=== PATIENT | female | born 1990 | race Caucasian/White ===

== ENCOUNTER 2018-04-28 19:51 | Emergency (ER) | payer OTHER ==
[~2018-04-28] VITALS: Ht 165.1 cm; Wt 59.0 kg
[2018-04-28 20:40] VITALS: BP 109/71
[2018-04-28] MEDS ORDERED: ONDANSETRON ODT 4 MG TAB.RAPDIS PO ONE (21:15)
[2018-04-28 21:26] LABS: BARBITURATES NEG (NEG); BENZODIAZEPINES NEG (NEG); CANNABINOIDS NEG (NEG); COCAINE NEG (NEG); METHADONE NEG (NEG); OPIATES NEG (NEG); PHENCYCLIDINE NEG (NEG)
[2018-04-28 21:30] LABS: AMPHETAMINE/METHAMPHETAMINE NEG (NEG)
[2018-04-28 21:34] LABS: BACTERIA,URINE FEW /HPF (0-FEW); BILIRUBIN,URINE NEG (NEG); CLARITY,URINE CLEAR; COLOR,URINE YELLOW; GLUCOSE,URINE NEG (NEG); NITRITE,URINE NEG (NEG); RBC,URINE OCC /HPF (0-2); SQUAMOUS EPITHELIAL CELL,UR MOD /LPF; UROBILINOGEN,URINE 0.2 mg/dL (0.2 mg/dL)
[2018-04-28] MEDS ORDERED: oxyCODONE/APAP 5/325 1 TAB TABLET ONE ×2 (22:30→22:31)
[2018-04-29] MEDS ORDERED: oxyCODONE/APAP 5/325 1 TAB TABLET PO ONE (05:00)
--- NOTE | 2018-04-29 06:43 | ED.ADGEN ---
Past History Past Medical History: Migraines, Other Past Surgical History: Tonsillectomy, Other Alcohol Use: None Drug Use: None Adult General Chief Complaint Chief Complaint ".. I ve had a headache the past week or so.. it has been off and on.... I do get migraines... usually the go away with tylenol or ibuprofen.. I have not been able to get in and see my Dr. Ambriz.. " HPI HPI Patient is a 27 year old female who presents with above hx and complaints generalized headache consistent with previous migraines. Patient does have some mild photophobia. Patient's previous workup of migraines have been negative including CT scans. Patient has had recent upper respiratory complaints. No recent travel or specific ill contacts. No history of renal suppression. No history of trauma. Review of Systems Review of Systems Constitutional: Denies fever or chills [] Eyes: Denies change in visual acuity, redness, or eye pain [] HENT: Recent nasal congestion and scratchy throat Respiratory: Denies cough or shortness of breath [] Cardiovascular: No additional information not addressed in HPI [] GI: Denies abdominal pain, vomiting, bloody stools or diarrhea []mild nausea : Denies dysuria or hematuria [] Musculoskeletal: Denies back pain or joint pain [] Integument: Denies rash or skin lesions [] Neurologic: Complaints of migraine headache, denies focal weakness or sensory changes [] Endocrine: Denies polyuria or polydipsia [] All other systems were reviewed and found to be within normal limits, except as documented in this note. Family History Family History Noncontributory Current Medications Current Medications Current Medications Medications (Trade) Dose Ordered Sig/Frannie Start Time Stop Time Status Last Admin Dose Admin Ondansetron HCl (Zofran Odt) 8 mg 1X ONCE 04/28/18 21:15 04/28/18 21:16 DC 04/28/18 21:13 8 MG Oxycodone/ Acetaminophen (Percocet 5/325) 2 tab 1X ONCE 04/29/18 05:00 04/29/18 05:13 DC See nursing for home meds Allergies Allergies Allergies Coded Allergies Type Severity Reaction Last Updated Verified amoxicillin Allergy Intermediate 04/28/18 Yes penicillin G Allergy Intermediate 04/28/18 Yes Physical Exam Physical Exam Constitutional: Well developed, well nourished, no acute distress, non-toxic appearance. [] HENT: Normocephalic, atraumatic, bilateral external ears normal, oropharynx moist, no oral exudates, nose swollen turbinates and clear rhinorrhea Eyes: PERRLA, EOMI, conjunctiva normal, no discharge. [] Limited fundus exam no acute findings. Neck: Normal range of motion, no tenderness, supple, no stridor. [] Cardiovascular:Heart rate regular rhythm, no murmur [] Lungs & Thorax: Bilateral breath sounds equal apex with few scattered wheezes on auscultation [] Abdomen: Bowel sounds normal, soft, no tenderness, no masses, no pulsatile masses. [] Skin: Warm, dry, no erythema, no rash. [] Back: No tenderness, no CVA tenderness. [] Extremities: No tenderness, no cyanosis, no clubbing, ROM intact, no edema. [] Neurologic: Alert and oriented X 3, normal motor function, normal sensory function, no focal deficits noted. [DTRs +2 patella and brachial. House Mover Helper equal. No drift. Patient ambulatory without problems. Psychologic: Affect anxious, judgement normal, mood normal. [] Current Patient Data Vital Signs Vital Signs Date Time Temp Pulse Resp B/P (MAP) Pulse Ox O2 Delivery O2 Flow Rate FiO2 04/28/18 20:40 98.7 76 20 96 Room Air Lab Results Laboratory Tests Test 04/28/18 20:58 04/28/18 21:09 Urine Collection Type Unknown Urine Color Yellow Urine Clarity Clear Urine pH 7.5 Urine Specific [place] 1.015 Urine Protein Neg (NEG-TRACE) Urine Glucose (UA) Neg mg/dL (NEG) Urine Ketones (Stick) Neg mg/dL (NEG) Urine Blood Neg (NEG) Urine Nitrite Neg (NEG) Urine Bilirubin Neg (NEG) Urine Urobilinogen Dipstick 0.2 mg/dL (0.2 mg/dL) Urine Leukocyte Esterase Small (NEG) Urine RBC Occ /HPF (0-2) Urine WBC 1-4 /HPF (0-4) Urine Squamous Epithelial Cells Mod /LPF Urine Bacteria Few /HPF (0-FEW) Urine Mucus Slight /LPF Urine Opiates Screen Neg (NEG) Urine Methadone Screen Neg (NEG) Urine Barbiturates Neg (NEG) Urine Phencyclidine Screen Neg (NEG) Urine Amphetamine/Methamphetamine Neg (NEG) Urine Benzodiazepines Screen Neg (NEG) Urine Cocaine Screen Neg (NEG) Urine Cannabinoids Screen Neg (NEG) Urine Ethyl Alcohol Neg (NEG) POC Urine HCG, Qualitative hcg negative (Negative) EKG EKG [] Radiology/Procedures Radiology/Procedures [] Course & Med Decision Making Course & Med Decision Making Pertinent Labs and Imaging studies reviewed. (See chart for details). Patient's symptoms improved. Decline any labs or radiographic evaluation. 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 Patient will be discharged home with Zofran8 up to 4 times a day for nausea and vomiting. Patient given a prescription for Imitrex 100- as a trial for her migraine. Instructed not to take more than 200 mg in 24 hour period. Patient take Imitrex at the beginning of headache. Patient follow-up primary care. Patient return if any concerns. [] Final Impression Final Impression 1. Migraine headache[] Dragon Disclaimer Dragon Disclaimer This electronic medical record was generated, in whole or in part, using a voice recognition dictation system. Dragon Disclaimer This chart was dictated in whole or in part using Voice Recognition software in a busy, high-work load, and often noisy Emergency Department environment. It may contain unintended and wholly unrecognized errors or omissions. Discharge Summary Visit Information Final Diagnosis Problems Medical Problems: (1) Migraine Status: Acute Brief Hospital Course Allergies Allergies Coded Allergies Type Severity Reaction Last Updated Verified amoxicillin Allergy Intermediate 04/28/18 Yes penicillin G Allergy Intermediate 04/28/18 Yes Vital Signs Vital Signs Date Time Temp Pulse Resp B/P (MAP) Pulse Ox O2 Delivery O2 Flow Rate FiO2 04/28/18 20:40 98.7 76 20 96 Room Air Lab Results Laboratory Tests Test 04/28/18 20:58 04/28/18 21:09 Urine Collection Type Unknown Urine Color Yellow Urine Clarity Clear Urine pH 7.5 Urine Specific [place] 1.015 Urine Protein Neg (NEG-TRACE) Urine Glucose (UA) Neg mg/dL (NEG) Urine Ketones (Stick) Neg mg/dL (NEG) Urine Blood Neg (NEG) Urine Nitrite Neg (NEG) Urine Bilirubin Neg (NEG) Urine Urobilinogen Dipstick 0.2 mg/dL (0.2 mg/dL) Urine Leukocyte Esterase Small (NEG) Urine RBC Occ /HPF (0-2) Urine WBC 1-4 /HPF (0-4) Urine Squamous Epithelial Cells Mod /LPF Urine Bacteria Few /HPF (0-FEW) Urine Mucus Slight /LPF Urine Opiates Screen Neg (NEG) Urine Methadone Screen Neg (NEG) Urine Barbiturates Neg (NEG) Urine Phencyclidine Screen Neg (NEG) Urine Amphetamine/Methamphetamine Neg (NEG) Urine Benzodiazepines Screen Neg (NEG) Urine Cocaine Screen Neg (NEG) Urine Cannabinoids Screen Neg (NEG) Urine Ethyl Alcohol Neg (NEG) Bedside Urine HCG, Qualitative hcg negative (Negative) Brief Hospital Course Ms. Funez is a 27 old female who presented with complaints migraine headache. Discharge Information Condition at Discharge: Improved, Stable Disposition/Orders: D/C to Home Dischare Medications Current Medications Ondansetron HCl (Zofran Odt) 8 mg 1X ONCE PO Last administered on 04/28/18at 21 :13; Admin Dose 8 MG; Start 04/28/18 at 21:15; Stop 04/28/18 at 21:16; Status DC Oxycodone/ Acetaminophen (Percocet 5/325) 1 tab STK-MED ONCE .ROUTE ; Start 02/03 at 22:31; Stop 04/29/18 at 02:19; Status DC Oxycodone/ Acetaminophen (Percocet 5/325) 2 tab STK-MED ONCE .ROUTE ; Start 02/03 at 22:30; Stop 04/29/18 at 03:55; Status DC Oxycodone/ Acetaminophen (Percocet 5/325) 2 tab 1X ONCE PO ; Start 04/29/18 at 05:00; Stop 04/29/18 at 05:13; Status DC TOMMY MUNGUIA MD Apr 29, 2018 06:43
== END 2018-04-29 00:20 | disposition home or self-care (01) ==
LOC: ER 19:51
DX: G43.909 Migraine, unspecified, not intractable, without status migrainosus (principal); Z88.0 Allergy status to penicillin; Z88.1 Allergy status to other antibiotic agents
CPT/HCPCS: 36415; 80307; 81001; 81025; 87086; 99283; Q0162

== ENCOUNTER 2018-08-25 16:50 | Emergency (ER) | payer OTHER ==
[~2018-08-25] VITALS: Ht 167.6 cm; Wt 68.0 kg
[2018-08-25] MEDS ORDERED: IV NORMAL SALINE 1,000ML 1,000 ML IV SCH (17:22)
[2018-08-25] MEDS ORDERED: PROCHLORPERAZINE 10 MG/2 ML VIAL. IV ONE (17:30)
[2018-08-25] MEDS ORDERED: KETOROLAC 30 MG/ML VIAL. IV ONE (17:30)
--- NOTE | 2018-08-25 17:30 | PHYS DOC ---
Past History Past Medical History: Migraines, P.I.D., Other (WICHO BURK DO) Past Medical History: Ovarian Cyst, STD, Other (TOMMY MUNGUIA MD) Past Surgical History: Tonsillectomy, Other (WICHO BURK DO) Smoking: Cigarettes Alcohol Use: None Drug Use: None Social History Narrative: D/C METHAMPHETAMINE 2017 (WICHO BURK DO) Adult General Chief Complaint Chief Complaint: ABDOMINAL PAIN HPI HPI Patient is a 28-year-old female presents complaining of worsening lower abdominal pain for the past week. Getting much worse over the past 2-3 days. No nausea or vomiting. Denies any vaginal bleeding or discharge. Different than her pain with previous pelvic inflammatory disease. Reports that the pain feels like it radiates to her rectum. No rectal bleeding. No diarrhea. Nothing makes the discomfort better or worse.[] (WICHO BURK DO) HPI Pt. localizes pain to Lt. L. quadrant.. Some cervical motion tenderness. Rectal hard stool. Some localization to Lt ovarian area. Pt. history of 4 pregnancies with 2 miscarriages. Number lifetime sex partners 6. One previous history of gonorrhea which was treated. Patient feels she has no current risk of STD. Patient has had episodes IBS bowel-type presentations. There is family history with mother with ulcerative colitis and IBS. Patient normally follows Dr. Fernandes patient denies any problems with defecation. No history of bad food intake. No history immunosuppression. No history of travel. (TOMMY MUNGUIA MD) Review of Systems Review of Systems Constitutional: Denies fever or chills [] Eyes: Denies change in visual acuity, redness, or eye pain [] HENT: Denies nasal congestion or sore throat [] Respiratory: Denies cough or shortness of breath [] Cardiovascular: No chest pain or palpitations[] GI: See history of present illness[] : Denies dysuria or hematuria [] Musculoskeletal: Denies back pain or joint pain [] Integument: Denies rash or skin lesions [] Neurologic: Denies headache, focal weakness or sensory changes [] Endocrine: Denies polyuria or polydipsia [] All other systems were reviewed and found to be within normal limits, except as documented in this note. (WICHO BURK DO) Family History Family History Ulcer colitis and IBS with mother (TOMMY MUNGUIA MD) Current Medications Current Medications See Nursing (TOMMY MUNGUIA MD) Allergies Allergies Allergies Coded Allergies Type Severity Reaction Last Updated Verified amoxicillin Allergy Intermediate 04/28/18 Yes penicillin G Allergy Intermediate 04/28/18 Yes (WICHO BURK DO) Physical Exam Physical Exam Constitutional: Well developed, well nourished, no acute distress, non-toxic appearance. [] HENT: Normocephalic, atraumatic, bilateral external ears normal, oropharynx moist, no oral exudates, nose normal. [] Eyes: PERRLA, EOMI, conjunctiva normal, no discharge. [] Neck: Normal range of motion, no tenderness, supple, no stridor. [] Cardiovascular:Heart rate regular rhythm, no murmur [] Lungs & Thorax: Bilateral breath sounds clear to auscultation [] Abdomen: Bowel sounds normal, soft, lower abdominal/suprapubic tenderness. No rebound, no guarding, no rigidity, able to sit up and lay back without any difficulty. no masses, no pulsatile masses. [] Skin: Warm, dry, no erythema, no rash. [] Back: No tenderness, no CVA tenderness. [] Extremities: No tenderness, no cyanosis, no clubbing, ROM intact, no edema. [] Neurologic: Alert and oriented X 3, normal motor function, normal sensory function, no focal deficits noted. [] Psychologic: Affect normal, judgement normal, mood normal. [] (WICHO BURK DO) Physical Exam Pelvic exam- mild cervical motion tenderness. Localization of pain to left adnexal area. Rectal exam hard stools. (TOMMY MUNGUIA MD) EKG EKG [] (WICHO BURK DO) Radiology/Procedures Radiology/Procedures [] (WICHO BURK DO) Radiology/Procedures [address] [id number] IMAGING REPORT Signed PATIENT: JONO FUNEZ ACCOUNT: [id number] : 1990 LOCATION: ER AGE: 28 SEX: F EXAM STATUS: REG ER ORD. PHYSICIAN: WICHO BURK DO REASON: LOWER ABD PAIN, H/O PID PROCEDURE: ABDOMEN LTD ABDOMEN LTD History: Lower abdominal pain Comparison: None. Findings: Multiple sonographic images of the abdomen are submitted. No abnormality of the visualized pancreas although poorly visualized due to bowel gas. No focal hepatic lesion is demonstrated. There is segmental visualization of the inferior vena cava. Right lobe of the liver measured 16.5 cm longitudinal. Common bile duct is within normal limits at 0.3 cm. Gallbladder is contracted in appearance with gallbladder wall thickening up to 0.4 cm, no obvious intraluminal abnormality. Reportedly the patient has eaten within the last hour prior to exam. Right kidney measured 10.6 x 5.5 x 4.2 cm, no hydronephrosis. There is hypoechoic lesion of the superior right kidney with some mild internal echoes, not associated with hypervascularity, maximal size about 1.3 x 1.6 x 1.5 cm. Impression: 1. There is nonspecific contracted appearance of the gallbladder although may be due to recent oral intake, nonspecific gallbladder wall thickening about 0.4 cm. No significant abnormality is demonstrated of the gallbladder. Common bile duct is not significantly dilated. 2. There is a somewhat complex cyst of the superior right kidney. Electronically signed by: Tania Yost MD (08/25/2018 6:13 PM) [facility] DICTATED AND SIGNED BY: TANIA YOST MD DATE: 08/25/181812 CC: WICHO BURK DO; TOMMY MUNGUIA MD; RAMU FERNANDES MD ~ [place] [id number] IMAGING REPORT Signed PATIENT: JONO FUNEZ ACCOUNT: [id number] : 1990 LOCATION: ER AGE: 28 SEX: F EXAM STATUS: REG ER ORD. PHYSICIAN: WICHO BURK DO REASON: LOWER ABD PAIN PROCEDURE: CT ABDOMEN PELVIS WO CONTRAST Examination: CT ABDOMEN PELVIS WO CONTRAST History: Lower abdominal pain Comparison/Correlation: None Findings: Axial images of the abdomen and pelvis were obtained without contrast. Sagittal and coronal reformatted images were provided. Visualized lung bases are clear. Minimal linear scarring or atelectasis involves the right middle lobe. Liver, spleen, pancreas, and adrenal glands are normal. Gallbladder fossa is unremarkable. Small umbilical hernia contains omental fat. No extraluminal gas. No bowel obstruction. Moderate quantity of stool in the colon noted. Appendix is normal. There are no radiopaque collecting system calculi or obstruction. Left adnexal cyst measuring 3.1 cm in maximum diameter is present. Right adnexal follicle measuring 1.7 cm diameter is present. Minimal pelvic free fluid. Urinary bladder is unremarkable. Myometrium is grossly unremarkable. 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 Impression: Adnexal follicles and left adnexal cystic structure. Minimal pelvic free fluid. These may be physiologic. Correlate clinically in determining further evaluation with pelvic ultrasound exam. No radiopaque collecting system calculi. PQRS Compliance Statement: One or more of the following individualized dose reduction techniques were utilized for this examination: 1. Automated exposure control 2. Adjustment of the mA and/or kV according to patient size 3. Use of iterative reconstruction technique Electronically signed by: Clif Xie MD (08/25/2018 6:36 PM) [facility] [place] DICTATED AND SIGNED BY: CLIF XIE MD DATE: 08/25/18 183 CC: WICHO BURK DO; TOMMY MUNGUIA MD; RAMU FERNANDES MD ~ (TOMMY MUNGUIA MD) Course & Med Decision Making Course & Med Decision Making Pertinent Labs and Imaging studies reviewed. (See chart for details) ED course: Patient arrived, was placed in bed, and tolerated exam well. She was transported to CT and ultrasound and is currently in ultrasound at the time of this dictation. Patient care was endorsed to the nighttime physician at 1800 with laboratory tests and imaging pending.[] (WICHO BURK DO) Course & Med Decision Making Impression: 1. Abdomen pain 2. Bacterial Vaginosis 3. Ovarian Cyst Lt and Rt. 4. Mildly Thicken Gall bladder wall Stay on clear fluid diet only. Take Doxycycline 100 twice a day. Follow up with primary. Follow up cultures. Return if any concerns. Zofran for nausea and vomiting. Marked discomfort vicoprofen. Must follow up. Nightly Metrazol (TOMMY MUNGUIA MD) Dragon Disclaimer Dragon Disclaimer This electronic medical record was generated, in whole or in part, using a voice recognition dictation system. (WICHO BURK DO) Departure Departure: Referrals: RAMU FERNANDES MD (PCP) Scripts Fluconazole (DIFLUCAN) 100 Mg Tablet 100 MG PO DAILY for yeast for 3 Days, #3 TAB Prov: TOMMY MUNGUIA MD 08/25/18 Doxycycline Hyclate (DOXYCYCLINE HYCLATE) 100 Mg Tablet 100 MG PO BID for cervicitis for 14 Days, #28 TAB Prov: TOMMY MUNGUIA MD 08/25/18 Metronidazole (METROGEL-VAGINAL) 70 Gm Gel.w.appl 1 APPFUL VG QHS for vaginosis for 10 Days, #70 GM Prov: TOMMY MUNGUIA MD 08/25/18 Hydrocodone/Ibuprofen (HYDROCODONE-IBUPROFEN 7.5-200 ) 1 Each Tablet 1 TAB PO PRN Q6HRS PRN for PAIN, #30 TAB 0 Refills Prov: TOMMY MUNGUIA MD 08/25/18 Discharge Summary Visit Information Final Diagnosis Problems Medical Problems: (1) Ovarian cyst Status: Acute (2) Pain in the abdomen Status: Acute (TOMMY MUNGUIA MD) Brief Hospital Course Allergies Allergies Coded Allergies Type Severity Reaction Last Updated Verified amoxicillin Allergy Intermediate 04/28/18 Yes penicillin G Allergy Intermediate 04/28/18 Yes Vital Signs Vital Signs Date Time Temp Pulse Resp B/P (MAP) Pulse Ox O2 Delivery O2 Flow Rate FiO2 08/25/18 17:40 98.2 88 16 94 Room Air Lab Results Laboratory Tests Test 08/25/18 17:00 08/25/18 18:16 Urine Collection Type Unknown Urine Color Yellow Urine Clarity Hazy Urine pH 7.0 Urine Specific [place] 1.020 Urine Protein Neg (NEG-TRACE) Urine Glucose (UA) Neg mg/dL (NEG) Urine Ketones (Stick) Neg mg/dL (NEG) Urine Blood Neg (NEG) Urine Nitrite Neg (NEG) Urine Bilirubin Neg (NEG) Urine Urobilinogen Dipstick 0.2 mg/dL (0.2 mg/dL) Urine Leukocyte Esterase Neg (NEG) Urine RBC 0 /HPF (0-2) Urine WBC 0 /HPF (0-4) Urine Squamous Epithelial Cells Occ /LPF Urine Bacteria Few /HPF (0-FEW) Urine Mucus Slight /LPF Urine Opiates Screen Neg (NEG) Urine Methadone Screen Neg (NEG) Urine Barbiturates Neg (NEG) Urine Phencyclidine Screen Neg (NEG) Urine Amphetamine/Methamphetamine Neg (NEG) Urine Benzodiazepines Screen Neg (NEG) Urine Cocaine Screen Neg (NEG) Urine Cannabinoids Screen Neg (NEG) Urine Ethyl Alcohol Neg (NEG) White Blood Count 9.4 x10^3/uL (4.0-11.0) Red Blood Count 3.92 x10^6/uL (3.50-5.40) Hemoglobin 12.5 g/dL (12.0-15.5) Hematocrit 37.1 % (36.0-47.0) Mean Corpuscular Volume 95 fL (79-100) Mean Corpuscular Hemoglobin 32 pg (25-35) Mean Corpuscular Hemoglobin Concent 34 g/dL (31-37) Red Cell Distribution Width 13.2 % (11.5-14.5) Platelet Count 276 x10^3/uL (140-400) Neutrophils (%) (Auto) 55 % (31-73) Lymphocytes (%) (Auto) 34 % (24-48) Monocytes (%) (Auto) 9 % (0-9) Eosinophils (%) (Auto) 2 % (0-3) Basophils (%) (Auto) 1 % (0-3) Neutrophils # (Auto) 5.1 x10^3uL (1.8-7.7) Lymphocytes # (Auto) 3.2 x10^3/uL (1.0-4.8) Monocytes # (Auto) 0.8 x10^3/uL (0.0-1.1) Eosinophils # (Auto) 0.2 x10^3/uL (0.0-0.7) Basophils # (Auto) 0.1 x10^3/uL (0.0-0.2) Sodium Level 138 mmol/L (136-145) Potassium Level 3.8 mmol/L (3.5-5.1) Chloride Level 103 mmol/L (98-107) Carbon Dioxide Level 25 mmol/L (21-32) Anion Gap 10 (6-14) Blood Urea Nitrogen 17 mg/dL (7-20) Creatinine 0.5 mg/dL (0.6-1.0) Estimated GFR (Cockcroft-Gault) 148.0 BUN/Creatinine Ratio 34 (6-20) Glucose Level 95 mg/dL (70-99) Calcium Level 8.7 mg/dL (8.5-10.1) Total Bilirubin 0.4 mg/dL (0.2-1.0) Aspartate Amino Transf (AST/SGOT) 10 U/L (15-37) Alanine Aminotransferase (ALT/SGPT) 17 U/L (14-59) Alkaline Phosphatase 62 U/L (46-116) Total Protein 6.7 g/dL (6.4-8.2) Albumin 3.6 g/dL (3.4-5.0) Albumin/Globulin Ratio 1.2 (1.0-1.7) Lipase 104 U/L (73-393) Serum Test, Qualitative Negative (NEG) Brief Hospital Course Ms. Funez is a 28 old female who presented with abdomen pain. (TOMMY MUNGUIA MD) Discharge Information Condition at Discharge: Improved, Stable Disposition/Orders: D/C to Home Dischare Medications Current Medications Sodium Chloride 1,000 ml @ 1,000 mls/hr Q1H IV Last administered on 08/25/18 18:21; Start 08/25/18 at 17:22; Stop 08/25/18 at 18:21; Status DC Prochlorperazine Edisylate (Compazine) 5 mg 1X ONCE IV Last administered on 08/25/18 18:21; Start 08/25/18 at 17:30; Stop 08/25/18 at 17:31; Status DC Ketorolac Tromethamine (Toradol 30mg Vial) 30 mg 1X ONCE IV Last administered on 08/25/18 18:21; Start 08/25/18 at 17:30; Stop 08/25/18 at 17:31; Status DC Azithromycin (Zithromax) 1,000 mg 1X ONCE PO Last administered on 08/25/18 21:53; Start 08/25/18 at 19:45; Stop 08/25/18 at 19:46; Status DC Metronidazole (Flagyl) 2,000 mg 1X ONCE PO Last administered on 08/25/18 21:54; Start 08/25/18 at 19:45; Stop 08/25/18 at 19:46; Status DC Ondansetron HCl (Zofran) 8 mg 1X ONCE IV Last administered on 08/25/18at 20:37; Start 08/25/18 at 19:45; Stop 08/25/18 at 19:46; Status DC Ceftriaxone Sodium 1 gm/ Sodium Chloride 50 ml @ 100 mls/hr 1X ONCE IV Last administered on 08/25/18at 21:30; Start 08/25/18 at 19:45; Stop 08/25/18 at 20:14; Status DC Sodium Chloride 50 ml @ As Directed STK-MED ONCE .ROUTE ; Start 08/25/18 at 20:12; Stop 08/25/18 at 20:13; Status DC Ceftriaxone Sodium (Rocephin) 1 gm STK-MED ONCE .ROUTE ; Start 08/25/18 at 20:13; Stop 08/25/18 at 20:14; Status DC Active Scripts Active Diflucan (Fluconazole) 100 Mg Tablet 100 Mg PO DAILY 3 Days Doxycycline Hyclate 100 Mg Tablet 100 Mg PO BID 14 Days Metrogel-Vaginal (Metronidazole) 70 Gm Gel.w.appl 1 Appful VG QHS 10 Days Hydrocodone-Ibuprofen 7.5-200 (Hydrocodone/Ibuprofen) 1 Each Tablet 1 Tab PO PRN Q6HRS PRN (TOMMY MUNGUIA MD) Dragon Disclaimer This chart was dictated in whole or in part using Voice Recognition software in a busy, high-work load, and often noisy Emergency Department environment. It may contain unintended and wholly unrecognized errors or omissions. (TOMMY MUNGUIA MD) WICHO BRUK DO Aug 25, 2018 17:30 TOMMY MUNGUIA MD Aug 25, 2018 18:16
[2018-08-25 17:32] LABS: BACTERIA,URINE FEW /HPF (0-FEW); BILIRUBIN,URINE NEG (NEG); CLARITY,URINE HAZY; COLOR,URINE YELLOW; GLUCOSE,URINE NEG (NEG); NITRITE,URINE NEG (NEG); RBC,URINE 0 /HPF (0-2); SQUAMOUS EPITHELIAL CELL,UR OCC /LPF; UROBILINOGEN,URINE 0.2 mg/dL (0.2 mg/dL); WBC,URINE 0 /HPF (0-4)
[2018-08-25 17:52] LABS: AMPHETAMINE/METHAMPHETAMINE NEG (NEG); BARBITURATES NEG (NEG); BENZODIAZEPINES NEG (NEG); CANNABINOIDS NEG (NEG); COCAINE NEG (NEG); METHADONE NEG (NEG); OPIATES NEG (NEG); PHENCYCLIDINE NEG (NEG)
--- NOTE | 2018-08-25 18:16 | RAD ---
ABDOMEN LTD History: Lower abdominal pain Comparison: None. Findings: Multiple sonographic images of the abdomen are submitted. No abnormality of the visualized pancreas although poorly visualized due to bowel gas. No focal hepatic lesion is demonstrated. There is segmental visualization of the inferior vena cava. Right lobe of the liver measured 16.5 cm longitudinal. Common bile duct is within normal limits at 0.3 cm. Gallbladder is contracted in appearance with gallbladder wall thickening up to 0.4 cm, no obvious intraluminal abnormality. Reportedly the patient has eaten within the last hour prior to exam. Right kidney measured 10.6 x 5.5 x 4.2 cm, no hydronephrosis. There is hypoechoic lesion of the superior right kidney with some mild internal echoes, not associated with hypervascularity, maximal size about 1.3 x 1.6 x 1.5 cm. Impression: 1. There is nonspecific contracted appearance of the gallbladder although may be due to recent oral intake, nonspecific gallbladder wall thickening about 0.4 cm. No significant abnormality is demonstrated of the gallbladder. Common bile duct is not significantly dilated. 2. There is a somewhat complex cyst of the superior right kidney. Electronically signed by: Javier Yost MD (08/25/2018 6:13 PM) [facility]
[2018-08-25 18:32] LABS: BASO # 0.1 x10^3/uL (0.0-0.2); BASO % 1 % (0-3); EOS # 0.2 x10^3/uL (0.0-0.7); EOS % 2 % (0-3); HEMATOCRIT 37.1 % (36.0-47.0); HEMOGLOBIN 12.5 g/dL (12.0-15.5); LYMPH # 3.2 x10^3/uL (1.0-4.8); LYMPH % 34 % (24-48); MEAN CORPUSCULAR HEMOGLOBIN 32 pg (25-35); MEAN CORPUSCULAR HGB CONC 34 g/dL (31-37); MEAN CORPUSCULAR VOLUME 95 fL (79-100); MONO # 0.8 x10^3/uL (0.0-1.1); MONO % 9 % (0-9); NEUT # 5.1 x10^3uL (1.8-7.7); NEUT % 55 % (31-73); PLATELET COUNT 276 x10^3/uL (140-400); RED BLOOD COUNT 3.92 x10^6/uL (3.50-5.40); RED CELL DISTRIBUTION WIDTH 13.2 % (11.5-14.5); WHITE BLOOD COUNT 9.4 x10^3/uL (4.0-11.0)
--- NOTE | 2018-08-25 18:39 | RAD ---
Examination: CT ABDOMEN PELVIS WO CONTRAST History: Lower abdominal pain Comparison/Correlation: None Findings: Axial images of the abdomen and pelvis were obtained without contrast. Sagittal and coronal reformatted images were provided. Visualized lung bases are clear. Minimal linear scarring or atelectasis involves the right middle lobe. Liver, spleen, pancreas, and adrenal glands are normal. Gallbladder fossa is unremarkable. Small umbilical hernia contains omental fat. No extraluminal gas. No bowel obstruction. Moderate quantity of stool in the colon noted. Appendix is normal. There are no radiopaque collecting system calculi or obstruction. Left adnexal cyst measuring 3.1 cm in maximum diameter is present. Right adnexal follicle measuring 1.7 cm diameter is present. Minimal pelvic free fluid. Urinary bladder is unremarkable. Myometrium is grossly unremarkable. 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 Impression: Adnexal follicles and left adnexal cystic structure. Minimal pelvic free fluid. These may be physiologic. Correlate clinically in determining further evaluation with pelvic ultrasound exam. No radiopaque collecting system calculi. PQRS Compliance Statement: One or more of the following individualized dose reduction techniques were utilized for this examination: 1. Automated exposure control 2. Adjustment of the mA and/or kV according to patient size 3. Use of iterative reconstruction technique Electronically signed by: Clif Thomas MD (08/25/2018 6:36 PM) [facility]
[2018-08-25 18:57] LABS: ALBUMIN 3.6 g/dL (3.4-5.0); ALBUMIN/GLOBULIN RATIO 1.2 (1.0-1.7); CALCIUM 8.7 mg/dL (8.5-10.1); CREATININE 0.5 mg/dL (0.6-1.0); POTASSIUM 3.8 mmol/L (3.5-5.1); TOTAL BILIRUBIN 0.4 mg/dL (0.2-1.0); TOTAL PROTEIN 6.7 g/dL (6.4-8.2)
[2018-08-25] MEDS ORDERED: AZITHROMYCIN 250 MG TABLET. PO ONE (19:45)
[2018-08-25] MEDS ORDERED: metroNIDAZOLE 500 MG TABLET PO ONE (19:45)
[2018-08-25] MEDS ORDERED: ONDANSETRON PF 4 MG/2 ML VIAL. IV ONE (19:45)
[2018-08-25] MEDS ORDERED: FLUC100T7 PO (20:10)
[2018-08-25] MEDS ORDERED: HYDR-1179 PO (20:10)
[2018-08-25] MEDS ORDERED: DOXY100T PO (20:10)
[2018-08-25] MEDS ORDERED: METR70GE14 VG (20:10)
[2018-08-25] MEDS ORDERED: IV NORMAL SALINE 50ML 50 ML ONE (20:12)
[2018-08-25] MEDS ORDERED: cefTRIAXone SODIUM 1 GM VIAL ONE (20:13)
[2018-08-25 20:38] LABS: PREG TEST PT QUAL NEGATIVE (NEG)
[2018-08-25 22:10] VITALS: BP 112/69
== END 2018-08-25 22:10 | disposition home or self-care (01) ==
LOC: ER 16:50
DX: N83.202 Unspecified ovarian cyst, left side (principal); N83.201 Unspecified ovarian cyst, right side; N76.0 Acute vaginitis; B96.89 Other specified bacterial agents as the cause of diseases classified elsewhere; G43.909 Migraine, unspecified, not intractable, without status migrainosus; K42.9 Umbilical hernia without obstruction or gangrene; F17.210 Nicotine dependence, cigarettes, uncomplicated; Z88.0 Allergy status to penicillin; Z88.1 Allergy status to other antibiotic agents
CPT/HCPCS: 36415; 74176; 76705; 80053; 80307; 81001; 81025; 83690; 84703; 85025; 87491; 87591; 96365; 96375; 99285; J0456; J0696; J0780; J1885; J2405; Q0111; J7030

== ENCOUNTER 2018-08-27 00:46 | Emergency (ER) | payer OTHER ==
[~2018-08-27] VITALS: Ht 320 cm; Wt 68.0 kg
[~2018-08-27 00:46] MED LIST: DOXY100T PO; FLUC100T7 PO; HYDR-1179 PO; METR70GE14 VG
[2018-08-27] MEDS ORDERED: ONDANSETRON ODT 4 MG TAB.RAPDIS ONE (01:22)
[2018-08-27] MEDS ORDERED: ONDA4TAB12 PO (01:26)
--- NOTE | 2018-08-27 01:27 | PHYS DOC ---
Past History Past Medical History: Ovarian Cyst, STD, Other Past Surgical History: Tonsillectomy Smoking: Cigarettes Alcohol Use: Rarely Drug Use: None Adult General Chief Complaint Chief Complaint: NAUSEA/VOMITING/DIARRHEA HPI HPI Patient is a 28 year old female who presents with complaint of nausea and vomi ting. Patient was seen in the emergency department yesterday evening with complaints of lower abdominal pain. Patient underwent extensive evaluation including blood work, urinalysis, pelvic exam, and imaging. Patient was diagnosed with bacterial vaginosis. Discharged on doxycycline, MetroGel, Distant, and Diflucan. States that her pain has resolved, however she started having wo rsening nausea and vomiting at approximately 1500 today. The patient states that she has been trying to keep up with oral intake but notes that she typically will vomit shortly after eating or drinking. Denies any fever and is not having any lower abdominal pain at this time. Due to the continued nausea and vomiting she came to the emergency department for reevaluation. Review of Systems Review of Systems Constitutional: Denies fever or chills [] Eyes: Denies change in visual acuity, redness, or eye pain [] HENT: Denies nasal congestion or sore throat [] Respiratory: Denies cough or shortness of breath [] Cardiovascular: Denies chest pain or edema[] GI: Nausea, vomiting, denies abdominal pain, bloody stools or diarrhea [] : Denies dysuria or hematuria [] Musculoskeletal: Denies back pain or joint pain [] Integument: Denies rash or skin lesions [] Neurologic: Denies headache, focal weakness or sensory changes [] All other systems were reviewed and found to be within normal limits, except as documented in this note. Current Medications Current Medications Current Medications Medications (Trade) Dose Ordered Sig/Frannie Start Time Stop Time Status Last Admin Dose Admin Ondansetron HCl (Zofran Odt) 4 mg 1X ONCE 08/27/18 01:30 08/27/18 01:31 UNV Allergies Allergies Allergies Coded Allergies Type Severity Reaction Last Updated Verified amoxicillin Allergy Intermediate 04/28/18 Yes penicillin G Allergy Intermediate 04/28/18 Yes Physical Exam Physical Exam Constitutional: Well developed, well nourished, no acute distress, non-toxic appearance. [] HENT: Normocephalic, atraumatic, bilateral external ears normal, oropharynx moist, no oral exudates, nose normal. [] Eyes: PERRLA, EOMI, conjunctiva normal, no discharge. [] Neck: Normal range of motion, no tenderness, supple, no stridor. [] Cardiovascular:Heart rate regular rhythm, no murmur [] Lungs & Thorax: Bilateral breath sounds clear to auscultation [] Abdomen: Bowel sounds normal, soft, no tenderness, no masses, no pulsatile masses. [] Skin: Warm, dry, no erythema, no rash. [] Back: No tenderness, no CVA tenderness. [] Extremities: No tenderness, no cyanosis, no clubbing, ROM intact, no edema. [] Neurologic: Alert and oriented X 3, normal motor function, normal sensory function, no focal deficits noted. [] Psychologic: Affect normal, judgement normal, mood normal. [] Current Patient Data Vital Signs Vital Signs Date Time Temp Pulse Resp B/P (MAP) Pulse Ox O2 Delivery O2 Flow Rate FiO2 08/27/18 01:02 98.0 72 14 96 Room Air Lab Results Gonorrhea and Chlamydia test drawn yesterday reviewed. Both are negative. EKG EKG Not performed[] Radiology/Procedures Radiology/Procedures Not performed[] Course & Med Decision Making Course & Med Decision Making Pertinent Labs and Imaging studies reviewed. (See chart for details) Overall patient reports improvement in symptoms. Vital signs are stable at this time and patient's abdominal exam is benign. The patient's nausea and vomiting may be due to treatment with doxycycline and Distant. As patient's gonorrhea and chlamydia cultures are negative at this time, I have recommended that the patient discontinue use of doxycycline and continue MetroGel only. Patient treated with Zofran ODT in the emergency department. Prescribed Zofran ODT for continued outpatient treatment. Advised to continue with oral fluids and to advance diet as tolerated. Recommended follow-up with primary doctor in 2 days for reevaluation and return to the emergency department for any worsening symptoms. Patient was understanding and in agreement with treatment plan.[] Dragon Disclaimer Dragon Disclaimer This electronic medical record was generated, in whole or in part, using a voice recognition dictation system. Departure Departure: Impression: Primary Impression: Nausea and vomiting Additional Impression: Bacterial vaginosis Disposition: HOME, SELF-CARE Condition: STABLE Referrals: RAMU MORRISSEY MD (PCP) Patient Instructions: Nausea and Vomiting Additional Instructions: Doxycycline at this time as this may be worsening or nausea and vomiting symptoms. Continue MetroGel as prescribed at her previous visit until therapy has been completed. Follow-up with your primary doctor in 2 days for reevaluation. Return to the emergency department for any worsening symptoms. Scripts Ondansetron (ONDANSETRON ODT) 4 Mg Tab.rapdis 1 TAB PO PRN Q6-8HRS PRN for NAUSEA/VOMITING, #16 TAB Prov: DAI SALDAÑA MD 08/27/18 Problem Qualifiers Primary Impression: Nausea and vomiting Vomiting type: unspecified Vomiting Intractability: non-intractable Qualified Codes: R11.2 - Nausea with vomiting, unspecified DAI SALDAÑA MD Aug 27, 2018 01:27
[2018-08-27] MEDS ORDERED: ONDANSETRON 4MG ODT 4TABLET STARTPACK. PO ONE ×2 (01:28→01:30)
[2018-08-27] MEDS ORDERED: ONDANSETRON ODT 4 MG TAB.RAPDIS PO ONE (01:30)
[2018-08-27 01:31] VITALS: BP 112/62
== END 2018-08-27 01:33 | disposition home or self-care (01) ==
LOC: ER 00:46
DX: N76.0 Acute vaginitis (principal); B96.89 Other specified bacterial agents as the cause of diseases classified elsewhere; R11.2 Nausea with vomiting, unspecified; F17.210 Nicotine dependence, cigarettes, uncomplicated; Z88.0 Allergy status to penicillin; Z88.1 Allergy status to other antibiotic agents
CPT/HCPCS: 99283; Q0162

== ENCOUNTER 2018-10-03 13:53 | Emergency (ER) | payer OTHER ==
[~2018-10-03] VITALS: Ht 320 cm; Wt 68.0 kg
[~2018-10-03 13:53] MED LIST changes: +ONDA4TAB12 PO
[2018-10-03] MEDS ORDERED: METOCLOPRAMIDE HCL 10 MG/2 ML VIAL. IV ONE (14:45)
[2018-10-03] MEDS ORDERED: DEXAMETHASONE SOD PHOS 10 MG/ML VIAL IV ONE (14:45)
[2018-10-03] MEDS ORDERED: diphenhydrAMINE 50 MG/ML VIAL IVP ONE (14:45)
[2018-10-03] MEDS ORDERED: KETOROLAC 15 MG/ML VIAL. IV ONE (14:45)
[2018-10-03] MEDS ORDERED: IV NORMAL SALINE 1,000ML 1,000 ML IV ONE (14:45)
[2018-10-03 15:25] VITALS: BP 102/66
[2018-10-03] MEDS ORDERED: ONDA4TAB12 PO (15:34)
[2018-10-03] MEDS ORDERED: BUTA1TAB23 PO (15:34)
--- NOTE | 2018-10-03 15:34 | PHYS DOC ---
Past History Past Medical History: Ovarian Cyst, STD, Other Past Surgical History: Tonsillectomy Smoking: Cigarettes Additional Smoking Information: 03/19 PPD Alcohol Use: Rarely Drug Use: None Adult General Chief Complaint Chief Complaint: HEADACHE HPI HPI Patient is a [age] year old [sex] who presents with [] Review of Systems Review of Systems Constitutional: Denies fever or chills [] Eyes: Denies change in visual acuity, redness, or eye pain [] HENT: Denies nasal congestion or sore throat [] Respiratory: Denies cough or shortness of breath [] Cardiovascular: No additional information not addressed in HPI [] GI: Denies abdominal pain, nausea, vomiting, bloody stools or diarrhea [] : Denies dysuria or hematuria [] Musculoskeletal: Denies back pain or joint pain [] Integument: Denies rash or skin lesions [] Neurologic: Denies headache, focal weakness or sensory changes [] Endocrine: Denies polyuria or polydipsia [] All other systems were reviewed and found to be within normal limits, except as documented in this note. Current Medications Current Medications Current Medications Medications (Trade) Dose Ordered Sig/Frannie Start Time Stop Time Status Last Admin Dose Admin Dexamethasone Sodium Phosphate (Decadron) 10 mg 1X ONCE 10/03/18 14:45 10/03/18 14:46 DC 10/03/18 14:58 10 MG Diphenhydramine HCl (Benadryl) 25 mg 1X ONCE 10/03/18 14:45 10/03/18 14:46 DC 10/03/18 14:57 25 MG Ketorolac Tromethamine (Toradol 15mg Vial) 15 mg 1X ONCE 10/03/18 14:45 10/03/18 14:46 DC 10/03/18 14:57 15 MG Metoclopramide HCl (Reglan Vial) 10 mg 1X ONCE 10/03/18 14:45 10/03/18 14:46 DC 10/03/18 14:57 10 MG Sodium Chloride 1,000 ml @ 1,000 mls/hr 1X ONCE 10/03/18 14:45 10/03/18 15:44 10/03/18 14:57 1,000 MLS/HR Allergies Allergies Allergies Coded Allergies Type Severity Reaction Last Updated Verified amoxicillin Allergy Intermediate 04/28/18 Yes penicillin G Allergy Intermediate 04/28/18 Yes Physical Exam Physical Exam Constitutional: Well developed, well nourished, no acute distress, non-toxic appearance. [] HENT: Normocephalic, atraumatic, bilateral external ears normal, oropharynx moist, no oral exudates, nose normal. [] Eyes: PERRLA, EOMI, conjunctiva normal, no discharge. [] Neck: Normal range of motion, no tenderness, supple, no stridor. [] Cardiovascular:Heart rate regular rhythm, no murmur [] Lungs & Thorax: Bilateral breath sounds clear to auscultation [] Abdomen: Bowel sounds normal, soft, no tenderness, no masses, no pulsatile masses. [] Skin: Warm, dry, no erythema, no rash. [] Back: No tenderness, no CVA tenderness. [] Extremities: No tenderness, no cyanosis, no clubbing, ROM intact, no edema. [] Neurologic: Alert and oriented X 3, normal motor function, normal sensory function, no focal deficits noted. [] Psychologic: Affect normal, judgement normal, mood normal. [] Current Patient Data Vital Signs Vital Signs Date Time Temp Pulse Resp B/P (MAP) Pulse Ox O2 Delivery O2 Flow Rate FiO2 10/03/18 15:25 66 16 102/66 (78) 98 Room Air 10/03/18 14:05 98.3 EKG EKG [] Radiology/Procedures Radiology/Procedures [] Course & Med Decision Making Course & Med Decision Making Pertinent Labs and Imaging studies reviewed. (See chart for details) [] Dragon Disclaimer Dragon Disclaimer This electronic medical record was generated, in whole or in part, using a voice recognition dictation system. Departure Departure: Impression: Primary Impression: Headache Disposition: 01 HOME, SELF-CARE Condition: IMPROVED Referrals: RAMU MORRISSEY MD (PCP) DENISE GEORGE MD Patient Instructions: Headache, FAQs, Migraine Headache, [id number] Scripts Ondansetron (ONDANSETRON ODT) 4 Mg Tab.rapdis 1 TAB PO PRN Q6-8HRS PRN for NAUSEA, #16 TAB Prov: HUNTER DELAROSA DO 10/03/18 Butalb/Acetaminophen/Caffeine ([id number] 50-325-40) 1 Each Tablet 1 TAB PO Q6HRS PRN for HEADACHE, #14 TAB Prov: HUNTER DELAROSA DO 10/03/18 Problem Qualifiers Primary Impression: Headache Headache type: unspecified Headache chronicity pattern: acute headache Intractability: not intractable Qualified Codes: R51 - Headache HUNTER DELAROSA DO Oct 03, 2018 15:34
== END 2018-10-03 15:53 | disposition home or self-care (01) ==
LOC: ER 13:53
DX: R51 Headache (principal); F17.210 Nicotine dependence, cigarettes, uncomplicated; Z88.1 Allergy status to other antibiotic agents; Z88.0 Allergy status to penicillin
CPT/HCPCS: 96374; 96375; 99284; J1100; J1200; J1885; J2765; J7030

== ENCOUNTER 2019-01-18 17:30 | Emergency (ER) | payer SELFPAY ==
[~2019-01-18] VITALS: Ht 162.6 cm; Wt 55.5 kg
[~2019-01-18 17:30] MED LIST changes: +BUTA1TAB23 PO
--- NOTE | 2019-01-18 17:43 | ED.ADGEN ---
Past History Past Medical History: Anxiety, Ovarian Cyst, STD, Other Past Medical History Hx. Back Fx. as Teenager, Hx. of Methamphetamine abuse- in remission Past Surgical History: Tonsillectomy Smoking: Cigarettes, Less than 1pk/day Alcohol Use: Rarely Drug Use: None Adult General Chief Complaint Chief Complaint ".. I ve been getting this burning... but numbing pain that runs down my Rt. leg.. it seems to start in my back.. and goes all the way down to my foot on the right.. It has been elana constant the past week and a half... I have had it before... the only thing new is I have been off my gabapentin......." HPI HPI Patient is a 28 year old female who presents with above hx and complaints right leg numbness and burning pain. Pain can be elicited with straight leg lift on the right.. Pain on palpation appears to fall off the right sciatic nerve. Appears to be primarily L4, L5 and S1 distribution. Does have distal vibratory of 128 fork.. There is no cording appreciated. Distal pulses are equal to left foot. Patient does have a remote history of a back fracture when she was a teenager.. 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 Patient does have a history of prior drug abuse-primarily methamphetamine. Patient has a history of bipolar disorder. Patient states she has been off all illicit drugs. Patient does continue to smoke. Patient normally follows with Dr. Fernandes. No history of recent trauma. No history of immunosuppression. No history of fever or chills. No history of cancer. No h istory of problems with defecation or urination. Review of Systems Review of Systems Constitutional: Denies fever or chills [] Eyes: Denies change in visual acuity, redness, or eye pain [] HENT: Denies nasal congestion or sore throat [] Respiratory: Denies cough or shortness of breath [] Cardiovascular: No additional information not addressed in HPI [] GI: Denies abdominal pain, nausea, vomiting, bloody stools or diarrhea [] : Denies dysuria or hematuria [] Musculoskeletal: Denies back pain or joint pain []complaints of right leg numbness and burning along sciatic roots Integument: Denies rash or skin lesions [] Neurologic: Denies headache, focal weakness or sensory changes [] Endocrine: Denies polyuria or polydipsia [] All other systems were reviewed and found to be within normal limits, except as documented in this note. Family History Family History Noncontributory Current Medications Current Medications See nursing for home medications Allergies Allergies Allergies Coded Allergies Type Severity Reaction Last Updated Verified amoxicillin Allergy Intermediate 04/28/18 Yes penicillin G Allergy Intermediate 04/28/18 Yes Physical Exam Physical Exam Constitutional: Moderate acute distress, non-toxic appearance. [] HENT: Normocephalic, atraumatic, bilateral external ears normal, oropharynx [address], no oral exudates, nose normal. [] Eyes: PERRLA, EOMI, conjunctiva normal, no discharge. [] Neck: Normal range of motion, no tenderness, supple, no stridor. [] Cardiovascular:Heart rate regular rhythm, no murmur [] Lungs & Thorax: Bilateral breath sounds equal at apex with scattered wheezes on auscultation [] Abdomen: Bowel sounds normal, soft, no tenderness, no masses, no pulsatile masses. [] Skin: Warm, dry, no erythema, no rash. Tattoos Back: No mild line tenderness, no CVA tenderness. [] Extremities: No midline tenderness, no cyanosis, no clubbing, ROM intact, no edema. []Pt. does has pain along Rt sciatic nerve as per history of present illness. Straight leg lift exacerbates pain in Sciatic nerve. Neurologic: Alert and oriented X 3, normal motor function, normal sensory function, no focal deficits noted. []DTR is +2 patella, ankle and brachial. Subjective numbness and burning along the Rt Sciatic L4,5, S1 lever in foot and calf. Vibratory 128 intact. Psychologic: Affect anxious, judgement normal, mood normal. [] Current Patient Data Vital Signs Vital Signs Date Time Temp Pulse Resp B/P (MAP) Pulse Ox O2 Delivery O2 Flow Rate FiO2 01/18/19 19:00 78 18 99/65 (76) 99 Room Air 01/18/19 17:35 99.1 Lab Results Laboratory Tests Test 01/18/19 17:44 01/18/19 18:49 Urine Collection Type Unknown Urine Color Yellow Urine Clarity Clear Urine pH 7.0 Urine Specific [place] 1.025 Urine Protein Neg (NEG-TRACE) Urine Glucose (UA) Neg mg/dL (NEG) Urine Ketones (Stick) Neg mg/dL (NEG) Urine Blood Neg (NEG) Urine Nitrite Neg (NEG) Urine Bilirubin Neg (NEG) Urine Urobilinogen Dipstick 0.2 mg/dL (0.2 mg/dL) Urine Leukocyte Esterase Neg (NEG) Urine RBC 0 /HPF (0-2) Urine WBC 0 /HPF (0-4) Urine Squamous Epithelial Cells Many /LPF Urine Bacteria Few /HPF (0-FEW) Urine Mucus Slight /LPF Urine Opiates Screen Neg (NEG) Urine Methadone Screen Neg (NEG) Urine Barbiturates Neg (NEG) Urine Phencyclidine Screen Neg (NEG) Urine Amphetamine/Methamphetamine Neg (NEG) Urine Benzodiazepines Screen Neg (NEG) Urine Cocaine Screen Neg (NEG) Urine Cannabinoids Screen Neg (NEG) Urine Ethyl Alcohol Neg (NEG) POC Urine HCG, Qualitative hcg negative (Negative) EKG EKG [] Radiology/Procedures Radiology/Procedures [] Course & Med Decision Making Course & Med Decision Making Pertinent Labs and Imaging studies reviewed. (See chart for details) Pt. recommend to stop smoking. Follow with primary. Re-start gabapentin. May be a candidate for physical therapy and possible localized steroid injections at site of L5-S1 take off. Ice packs as needed. Ibuprofen and Tylenol for pain. Must follow-up. [] Final Impression Final Impression 1. Sciatica 2. Tobacco use 3. History of bipolar disorder[] Dragon Disclaimer Dragon Disclaimer This electronic medical record was generated, in whole or in part, using a voice recognition dictation system. Dragon Disclaimer This chart was dictated in whole or in part using Voice Recognition software in a busy, high-work load, and often noisy Emergency Department environment. It may contain unintended and wholly unrecognized errors or omissions. TOMMY MUNGUIA MD Jan 18, 2019 17:43
[2019-01-18 18:17] LABS: BACTERIA,URINE FEW /HPF (0-FEW); BILIRUBIN,URINE NEG (NEG); CLARITY,URINE CLEAR; COLOR,URINE YELLOW; GLUCOSE,URINE NEG (NEG); NITRITE,URINE NEG (NEG); RBC,URINE 0 /HPF (0-2); SQUAMOUS EPITHELIAL CELL,UR MANY /LPF; UROBILINOGEN,URINE 0.2 mg/dL (0.2 mg/dL); WBC,URINE 0 /HPF (0-4)
[2019-01-18] MEDS ORDERED: GABA-586 PO (18:25)
[2019-01-18 18:43] LABS: BARBITURATES NEG (NEG); BENZODIAZEPINES NEG (NEG); CANNABINOIDS NEG (NEG); COCAINE NEG (NEG); METHADONE NEG (NEG); OPIATES NEG (NEG); PHENCYCLIDINE NEG (NEG)
[2019-01-18 18:45] LABS: AMPHETAMINE/METHAMPHETAMINE NEG (NEG)
[2019-01-18 19:00] VITALS: BP 99/65
== END 2019-01-18 19:00 | disposition home or self-care (01) ==
LOC: ER 17:30
DX: M54.32 Sciatica, left side (principal); F31.9 Bipolar disorder, unspecified; F41.9 Anxiety disorder, unspecified; F17.210 Nicotine dependence, cigarettes, uncomplicated; Z88.0 Allergy status to penicillin; Z88.1 Allergy status to other antibiotic agents
CPT/HCPCS: 36415; 80307; 81001; 81025; 99284

== ENCOUNTER 2019-03-22 20:38 | Emergency (ER) | payer SELFPAY ==
[~2019-03-22] VITALS: Ht 162.6 cm; Wt 55.5 kg
[~2019-03-22 20:38] MED LIST changes: +GABA-586 PO
--- NOTE | 2019-03-22 20:43 | PHYS DOC ---
Past History Past Medical History: Alcoholism, Anxiety, Bipolar, Depression, GERD, Ovarian Cyst, STD, Other Past Surgical History: Tonsillectomy Smoking: Cigarettes, Less than 1pk/day Alcohol Use: Rarely Drug Use: None Adult General Chief Complaint Chief Complaint: ..." To make a long story short.. I took a Percocet... That was placed the fentanyl... I ended up at [facility] .. and had a code... compressions and a lot of narcan.. but then ended up discharging me home... I am still sore today..."and I ve had some nausea and vomiting... " HPI HPI Patient is a 28 year old female who presents with above hx and nausea and vomiting. Patient has complaints of chest wall tenderness where she had chest compressions from CPR on 03/21/19.. Patient states she normally follows at [facility] for healthcare. Patient states she's been clean and off drugs for a couple years. Patient advised that the Percocet was a old Percocet she had for oral surgery but her boyfriend had laced it with fentanyl. Patient denies any specific ill contacts. No recent travel. Patient denies current drug use. Does admit to past methamphetamine and alcohol abuse. Patient denies any intake bad food. No recent travel. No history immunosuppression. Normally follows at the clinics at [facility]. Reviewed record from [facility]- 03/21/19- Narcotic OD- CPR and Narcan. Review of Systems Review of Systems Constitutional: Subjective fevers Eyes: Denies change in visual acuity, redness, or eye pain [] HENT: Denies nasal congestion or sore throat [] Respiratory: Complaints of chest wall tenderness. ] Cardiovascular: No additional information not addressed in HPI [] GI: Hx. of nausea, vomiting, this afternoon, ..Denies bloody stools or diarrhea [] : Denies dysuria or hematuria [] Musculoskeletal: Denies back pain or joint pain [] Integument: Denies rash or skin lesions [] Neurologic: Denies headache, focal weakness or sensory changes [] Endocrine: Denies polyuria or polydipsia [] All other systems were reviewed and found to be within normal limits, except as documented in this note. Family History Family History Noncontributory Current Medications Current Medications See nursing for home meds Allergies Allergies Allergies Coded Allergies Type Severity Reaction Last Updated Verified amoxicillin Allergy Intermediate 04/28/18 Yes penicillin G Allergy Intermediate 04/28/18 Yes Physical Exam Physical Exam Constitutional: Well developed, well nourished, [id number] distress, non- toxic appearance. [] HENT: Normocephalic, atraumatic, bilateral external ears normal, oropharynx moist, no oral exudates, nose normal. [] Eyes: PERRLA, EOMI, conjunctiva normal, no discharge. [] Neck: Normal range of motion, no tenderness, supple, no stridor. [] Cardiovascular:Heart rate regular rhythm, no murmur [] Lungs & Thorax: Bilateral breath sounds equal at apex with scattered wheezes on auscultation []. Does have tenderness on palpation of sternal borders. Some m ild ecchymosis. Abdomen: Bowel sounds hyperactive, soft, mild generalized tenderness, no masses, no pulsatile masses. [] No focal rebound. Skin: Warm, dry, no erythema, no rash. [] Back: No tenderness, no CVA tenderness. [] Extremities: No tenderness, no cyanosis, no clubbing, ROM intact, no edema. [] No psoas sign.. No cording noted. Neurologic: Alert and oriented X 3, normal motor function, normal sensory function, no focal deficits noted. []DTRs +2 patella and brachial. 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 Psychologic: Affect anxious, judgement normal, mood normal. [] EKG EKG My interpretation EKG shows a sinus bradycardia rhythm at 59 bpm. No findings acute STEMI of contralateral changes.[] Radiology/Procedures Radiology/Procedures [][address] [address] IMAGING REPORT Signed PATIENT: JONO CHASE MACCOUNT: [id number] : 1990 LOCATION: ER AGE: 28 SEX: F EXAM STATUS: REG ER ORD. PHYSICIAN: TOMMY MUNGUIA MD REASON: cp after cpr for Fentanyl over dose PROCEDURE: CHEST PA & LATERAL PA and lateral chest x-rays HISTORY: Chest pain after cardiopulmonary resuscitation for drug overdose. FINDINGS: Heart size normal. Mediastinal silhouette is normal. No pneumothorax, pulmonary opacities or pleural effusions. The bones are unremarkable. IMPRESSION: No acute process. Electronically signed by: Sinai Abreu MD (03/22/2019 11:25 PM) [facility] DICTATED AND SIGNED BY: SINAI ABREU MD DATE: 03/22/19 0958 CC: TOMMY MUNGUIA MD; RAMU MORRISSEY MD ~ Course & Med Decision Making Course & Med Decision Making Pertinent Labs and Imaging studies reviewed. (See chart for details) Take Tylenol and ibuprofen for pain. Patient keep follow-up primary care. Patient to stop smoking. If actively vomiting and having diarrhea go to a clear fluid diet. No solids or milk products. Follow-up counseling center and drug rehabilitation. Impression: 1. Chest wall pain-status post CPR for narcotic overdose on 03/21/2019 2. History of nausea vomiting and diarrhea- may be relieved to stopping narcoti cs abruptly versus viral gastroenteritis Dragon Disclaimer Dragon Disclaimer This electronic medical record was generated, in whole or in part, using a voice recognition dictation system. Departure Departure: Disposition: 01 HOME/RESIDENCE PRIOR TO ADM Condition: STABLE Referrals: RAMU MORRISSEY MD (PCP) Dragon Disclaimer This chart was dictated in whole or in part using Voice Recognition software in a busy, high-work load, and often noisy Emergency Department environment. It may contain unintended and wholly unrecognized errors or omissions. Dragon Disclaimer This chart was dictated in whole or in part using Voice Recognition software in a busy, high-work load, and often noisy Emergency Department environment. It m ay contain unintended and wholly unrecognized errors or omissions. TOMMY MUNGUIA MD Mar 22, 2019 20:43
[2019-03-22] MEDS ORDERED: ONDANSETRON ODT 4 MG TAB.RAPDIS PO ONE (21:00)
[2019-03-22] MEDS ORDERED: IV RINGERS SOLUTION,LACTATED 1,000 ML IV SCH (21:30)
[2019-03-22 21:33] LABS: BASO # 0.1 x10^3/uL (0.0-0.2); BASO % 1 % (0-3); EOS # 0.1 x10^3/uL (0.0-0.7); EOS % 1 % (0-3); HEMATOCRIT 38.9 % (36.0-47.0); LYMPH # 2.2 x10^3/uL (1.0-4.8); LYMPH % 26 % (24-48); MEAN CORPUSCULAR HEMOGLOBIN 31 pg (25-35); MEAN CORPUSCULAR HGB CONC 33 g/dL (31-37); MEAN CORPUSCULAR VOLUME 93 fL (79-100); MONO # 0.7 x10^3/uL (0.0-1.1); MONO % 8 % (0-9); NEUT # 5.4 x10^3uL (1.8-7.7); NEUT % 64 % (31-73); PLATELET COUNT 353 x10^3/uL (140-400); RED BLOOD COUNT 4.17 x10^6/uL (3.50-5.40); RED CELL DISTRIBUTION WIDTH 13.3 % (11.5-14.5); WHITE BLOOD COUNT 8.4 x10^3/uL (4.0-11.0)
[2019-03-22 21:45] LABS: BARBITURATES NEG (NEG); BENZODIAZEPINES NEG (NEG); CANNABINOIDS NEG (NEG); COCAINE NEG (NEG); METHADONE NEG (NEG); OPIATES NEG (NEG); PHENCYCLIDINE NEG (NEG)
[2019-03-22 21:47] LABS: AMPHETAMINE/METHAMPHETAMINE NEG (NEG)
[2019-03-22 21:57] LABS: INFLUENZA A PATIENT NEGATIVE (NEGATIVE); INFLUENZA B PATIENT NEGATIVE (NEGATIVE)
[2019-03-22 22:01] LABS: CALCIUM 8.5 mg/dL (8.5-10.1); CREATININE 0.5 mg/dL (0.6-1.0); POTASSIUM 3.7 mmol/L (3.5-5.1)
[2019-03-22 22:13] LABS: ALBUMIN 3.5 g/dL (3.4-5.0); DIRECT BILIRUBIN 0.1 mg/dL (0.0-0.2); MAGNESIUM 1.8 mg/dL (1.8-2.4); TOTAL BILIRUBIN 0.6 mg/dL (0.2-1.0); TOTAL PROTEIN 6.9 g/dL (6.4-8.2)
[2019-03-22 22:25] LABS: BILIRUBIN,URINE NEG (NEG); CLARITY,URINE CLEAR; COLOR,URINE STRAW; GLUCOSE,URINE NEG (NEG); NITRITE,URINE NEG (NEG); UROBILINOGEN,URINE 0.2 mg/dL (0.2 mg/dL)
--- NOTE | 2019-03-22 22:25 | EKG ---
[address] [address] Test Date: 2019-03-22 Test Time: 21:54:31 Pat Name: JONO CHASE Department: Room: Gender: F Web Search Evaluator: : 1990 Requested By: TOMMY MUNGUIA Order Number: [id number] Reading MD: Measurements Intervals [place] Rate: 59 P: 34 ME: 152 QRS: 74 QRSD: 78 T: 49 QT: 392 QTc: 388 Interpretive Statements SINUS RHYTHM NO SPECIFIC ECG ABNORMALITIES RI6.01 No previous ECG available for comparison
[2019-03-22 22:26] LABS: BACTERIA,URINE 0 /HPF (0-FEW); SQUAMOUS EPITHELIAL CELL,UR OCC /LPF; WBC,URINE OCC /HPF (0-4)
[2019-03-22 22:54] LABS: U PREG PATIENT NEGATIVE (NEG)
[2019-03-22] MEDS ORDERED: ORPHENADRINE CITRATE 60 MG/2 ML VIAL. IV ONE (23:00)
[2019-03-22] MEDS ORDERED: KETOROLAC 30 MG/ML VIAL. IVP ONE (23:00)
--- NOTE | 2019-03-22 23:28 | RAD ---
PA and lateral chest x-rays HISTORY: Chest pain after cardiopulmonary resuscitation for drug overdose. FINDINGS: Heart size normal. Mediastinal silhouette is normal. No pneumothorax, pulmonary opacities or pleural effusions. The bones are unremarkable. IMPRESSION: No acute process. Electronically signed by: Chad Abreu MD (03/22/2019 11:25 PM) [facility]
[2019-03-23 03:19] VITALS: BP 98/57
== END 2019-03-23 | disposition home or self-care (01) ==
LOC: ER 20:38
DX: R07.89 Other chest pain (principal); R11.2 Nausea with vomiting, unspecified; R19.7 Diarrhea, unspecified; F10.20 Alcohol dependence, uncomplicated; F41.9 Anxiety disorder, unspecified; F31.9 Bipolar disorder, unspecified; K21.9 Gastro-esophageal reflux disease without esophagitis; F17.210 Nicotine dependence, cigarettes, uncomplicated; Z88.0 Allergy status to penicillin; Z88.1 Allergy status to other antibiotic agents; Y90.0 Blood alcohol level of less than 20 mg/100 ml
CPT/HCPCS: 36415; 71046; 80048; 80076; 80307; 81001; 81025; 82550; 83690; 83735; 83880; 84484; 85025; 85379; 85610; 85730; 87804; 93005; 96361; 96374; 96375; 99285; J1885; J2360; J7120; Q0162

== ENCOUNTER 2019-03-25 15:25 | Emergency (ER) | payer SELFPAY ==
[~2019-03-25] VITALS: Ht 162.6 cm; Wt 54.9 kg
--- NOTE | 2019-03-25 16:10 | PHYS DOC ---
Past History Past Medical History: Alcoholism, Anxiety, Bipolar, Depression, GERD, Ovarian Cyst, STD, Other Past Surgical History: No Surgical History Smoking: Cigarettes, Less than 1pk/day Alcohol Use: None Drug Use: Methadone, Opiates Adult General Chief Complaint Chief Complaint: NAUSEA/VOMITING/DIARRHEA HPI HPI 28-year-old female presents with couple day history of abdominal pain, nausea, vomiting. She has been unable to keep down any liquids or solids today and she is worried might get dehydrated. She has had 2 episodes of diarrhea. 4 days ago, the patient overdosed on fentanyl that she took one accident thinking of his Percocet for headache. She had to have CPR performed by her and paramedics. She was seen at another facility at that time and discharged home after Narcan. Patient denies any drug use today. Her chest is sore. She denies fever or chills. She has no other complaints at this time. Review of Systems Review of Systems Constitutional: Denies fever or chills [] Eyes: Denies change in visual acuity, redness, or eye pain [] HENT: Denies nasal congestion or sore throat [] Respiratory: Denies cough or shortness of breath [] Cardiovascular: No additional information not addressed in HPI [] GI: Epigastric abdominal pain, nausea, vomiting, diarrhea [] : Denies dysuria or hematuria [] Musculoskeletal: Denies back pain or joint pain [] Integument: Denies rash or skin lesions [] Neurologic: Denies headache, focal weakness or sensory changes [] Endocrine: Denies polyuria or polydipsia [] All other systems were reviewed and found to be within normal limits, except as documented in this note. Current Medications Current Medications Current Medications Medications (Trade) Dose Ordered Sig/Frannie Start Time Stop Time Status Last Admin Dose Admin Ondansetron HCl (Zofran) 4 mg 1X ONCE 03/25/19 16:15 03/25/19 16:16 Sodium Chloride 1,000 ml @ 1,000 mls/hr 1X ONCE 03/25/19 16:15 03/25/19 17:14 Allergies Allergies Allergies Coded Allergies Type Severity Reaction Last Updated Verified amoxicillin Allergy Intermediate 04/28/18 Yes penicillin G Allergy Intermediate 04/28/18 Yes Physical Exam Physical Exam Constitutional: Well developed, well nourished, no acute distress, non-toxic appearance. [] HENT: Normocephalic, atraumatic, bilateral external ears normal, oropharynx moist, no oral exudates, nose normal. [] Eyes: PERRLA, EOMI, conjunctiva normal, no discharge. [] Neck: Normal range of motion, no tenderness, supple, no stridor. [] Cardiovascular:Heart rate regular rhythm, no murmur [] Lungs & Thorax: Bilateral breath sounds clear to auscultation [] Abdomen: Bowel sounds normal, soft, no tenderness, no masses, no pulsatile masses. [] Skin: Warm, dry, no erythema, no rash. [] Back: No tenderness, no CVA tenderness. [] Extremities: No tenderness, no cyanosis, no clubbing, ROM intact, no edema. [] Neurologic: Alert and oriented X 3, normal motor function, normal sensory function, no focal deficits noted. [] Psychologic: Affect normal, judgement normal, mood normal. [] Current Patient Data Vital Signs Vital Signs Date Time Temp Pulse Resp B/P (MAP) Pulse Ox O2 Delivery O2 Flow Rate FiO2 03/25/19 15:38 98.2 75 16 99 Room Air EKG EKG [] Radiology/Procedures Radiology/Procedures [] Course & Med Decision Making Course & Med Decision Making Pertinent Labs and Imaging studies reviewed. (See chart for details) The patient's labs are unremarkable. Her urine drug screen is negative. Her urinalysis is negative for infection. I have given a liter of normal saline and 4 mg of Zofran IV. She's had no further vomiting. I will discharge her with a prescription for Zofran. She is stable for discharge at this time. [] Dragon Disclaimer Dragon Disclaimer This electronic medical record was generated, in whole or in part, using a voice recognition dictation system. Departure Departure: Impression: Primary Impression: Nausea & vomiting Disposition: 01 HOME, SELF-CARE Condition: IMPROVED Referrals: RAMU MORRISSEY MD (PCP) Patient Instructions: Nausea and Vomiting, Tamc-am-Cdnm Scripts Ondansetron (ONDANSETRON ODT) 4 Mg Tab.rapdis 1 TAB PO PRN Q6-8HRS PRN for VOMITING, #16 TAB Prov: BRAVO PINEDA DO 03/25/19 Problem Qualifiers Primary Impression: Nausea & vomiting Vomiting type: unspecified Vomiting Intractability: intractable Qualified Codes: R11.2 - Nausea with vomiting, unspecified BRAVO PINEDA DO Mar 25, 2019 16:09
[2019-03-25] MEDS ORDERED: ONDANSETRON PF 4 MG/2 ML VIAL. IVP ONE (16:15)
[2019-03-25] MEDS ORDERED: IV NORMAL SALINE 1,000ML 1,000 ML IV ONE (16:15)
[2019-03-25 16:36] LABS: CALCIUM 8.7 mg/dL (8.5-10.1); CREATININE 0.5 mg/dL (0.6-1.0); POTASSIUM 3.6 mmol/L (3.5-5.1)
[2019-03-25 16:40] LABS: BASO # 0.1 x10^3/uL (0.0-0.2); BASO % 1 % (0-3); EOS # 0.1 x10^3/uL (0.0-0.7); EOS % 1 % (0-3); HEMATOCRIT 35.4 % (36.0-47.0); HEMOGLOBIN 12.2 g/dL (12.0-15.5); LYMPH # 2.5 x10^3/uL (1.0-4.8); LYMPH % 23 % (24-48); MEAN CORPUSCULAR HEMOGLOBIN 32 pg (25-35); MEAN CORPUSCULAR HGB CONC 35 g/dL (31-37); MEAN CORPUSCULAR VOLUME 91 fL (79-100); MONO # 0.6 x10^3/uL (0.0-1.1); MONO % 6 % (0-9); NEUT # 7.5 x10^3uL (1.8-7.7); NEUT % 70 % (31-73); PLATELET COUNT 336 x10^3/uL (140-400); RED BLOOD COUNT 3.88 x10^6/uL (3.50-5.40); RED CELL DISTRIBUTION WIDTH 13.2 % (11.5-14.5); WHITE BLOOD COUNT 10.7 x10^3/uL (4.0-11.0)
[2019-03-25 16:42] LABS: ALBUMIN 3.6 g/dL (3.4-5.0); ALBUMIN/GLOBULIN RATIO 1.1 (1.0-1.7); TOTAL BILIRUBIN 0.7 mg/dL (0.2-1.0); TOTAL PROTEIN 6.9 g/dL (6.4-8.2)
[2019-03-25 16:50] LABS: BARBITURATES NEG (NEG); BENZODIAZEPINES NEG (NEG); CANNABINOIDS NEG (NEG); COCAINE NEG (NEG); METHADONE NEG (NEG); OPIATES NEG (NEG); PHENCYCLIDINE NEG (NEG)
[2019-03-25 16:55] LABS: BACTERIA,URINE 0 /HPF (0-FEW); BILIRUBIN,URINE NEG (NEG); CLARITY,URINE HAZY; COLOR,URINE AMBER; GLUCOSE,URINE NEG (NEG); NITRITE,URINE NEG (NEG); SQUAMOUS EPITHELIAL CELL,UR FEW /LPF; WBC,URINE 0 /HPF (0-4)
[2019-03-25 16:58] LABS: AMPHETAMINE/METHAMPHETAMINE NEG (NEG)
[2019-03-25] MEDS ORDERED: ONDA4TAB12 PO (17:03)
[2019-03-25 17:16] VITALS: BP 112/67
== END 2019-03-25 17:15 | disposition home or self-care (01) ==
LOC: ER 15:25
DX: R11.2 Nausea with vomiting, unspecified (principal); R10.13 Epigastric pain; R19.7 Diarrhea, unspecified; F10.20 Alcohol dependence, uncomplicated; K21.9 Gastro-esophageal reflux disease without esophagitis; F41.9 Anxiety disorder, unspecified; F31.9 Bipolar disorder, unspecified; F17.210 Nicotine dependence, cigarettes, uncomplicated; Z88.0 Allergy status to penicillin; Z88.1 Allergy status to other antibiotic agents; Y90.0 Blood alcohol level of less than 20 mg/100 ml
CPT/HCPCS: 36415; 80053; 80307; 81001; 81025; 85025; 96361; 96374; 99284; J2405; J7030

== ENCOUNTER 2019-06-27 16:03 | Emergency (ER) | payer MEDICAID, OTHER ==
[~2019-06-27] VITALS: Ht 162.6 cm; Wt 53.0 kg
[2019-06-27 16:05] VITALS: BP 131/83
[2019-06-27] MEDS ORDERED: IV NORMAL SALINE 1,000ML 1,000 ML IV ONE (16:15)
--- NOTE | 2019-06-27 16:37 | PHYS DOC ---
Past History Past Medical History: Alcoholism, Anxiety, Bipolar, Depression, GERD, Ovarian Cyst, STD, Other Past Surgical History: No Surgical History Smoking: Cigarettes, Less than 1pk/day Alcohol Use: None Drug Use: Methadone, Opiates General Adult EDM: Chief Complaint: CHEST PAIN HPI: HPI: 28-year-old female presents with chest pain. The patient was doing methamphetamines the day before yesterday. She started having chest heaviness and pain yesterday morning. It has persisted till today. She decided to come the emergency room today. She has some mild shortness of breath. It does not seem to be affected by exertion. She has no history of cardiac disease. She does not believe she is . She has not had a cough. She is a smoker. Denies fever chills. Review of Systems: Review of Systems: Constitutional: Denies fever or chills Eyes: Denies change in visual acuity HENT: Denies nasal congestion or sore throat Respiratory: Denies cough. Mild shortness of breath Cardiovascular: Chest pain GI: Denies abdominal pain, nausea, vomiting, bloody stools or diarrhea : Denies dysuria Musculoskeletal: Denies back pain or joint pain Integument: Denies rash Neurologic: Denies headache, focal weakness or sensory changes Endocrine: Denies polyuria or polydipsia Lymphatic: Denies swollen glands Psychiatric: Denies depression or anxiety Heart Score: HEART Score for Chest Pain: HEART Score for Chest Pain Response (Comments) Value History Moderately Suspicious 1 ECG Normal 0 Age < 45 0 Risk Factors 1 or 2 Risk Factors 1 Troponin < Normal Limit 0 Total 2 Risk Factors: Risk Factors: DM, Current or recent (<one month) smoker, HTN, HLP, family history of CAD, obesity. Risk Scores: Score 0 - 3: 2.5% MACE over next 6 weeks - Discharge Home Score 4 - 6: 20.3% MACE over next 6 weeks - Admit for Clinical Observation Score 7 - 10: 72.7% MACE over next 6 weeks - Early Invasive Strategies Current Medications: Current Meds: Current Medications Medications (Trade) Dose Ordered Sig/Frannie Start Time Stop Time Status Last Admin Dose Admin Sodium Chloride 1,000 ml @ 1,000 mls/hr 1X ONCE 06/27/19 16:15 06/27/19 17:14 Allergies: Allergies: Allergies Coded Allergies Type Severity Reaction Last Updated Verified amoxicillin Allergy Intermediate 04/28/18 Yes penicillin G Allergy Intermediate 04/28/18 Yes Physical Exam: PE: Constitutional: Well developed, well nourished, no acute distress, non-toxic appearance. [] HENT: Normocephalic, atraumatic, bilateral external ears normal, oropharynx moist, no oral exudates, nose normal. [] Eyes: PERRLA, EOMI, conjunctiva normal, no discharge. [] Neck: Normal range of motion, no tenderness, supple, no stridor. [] Cardiovascular:Heart rate regular rhythm, no murmur [] Lungs & Thorax: Bilateral breath sounds clear to auscultation [] Abdomen: Bowel sounds normal, soft, no tenderness, no masses, no pulsatile masses. [] Skin: Warm, dry, no erythema, no rash. [] Back: No tenderness, no CVA tenderness. [] Extremities: No tenderness, no cyanosis, no clubbing, ROM intact, no edema. [] Neurologic: Alert and oriented X 3, normal motor function, normal sensory function, no focal deficits noted. [] Psychologic: Affect normal, twitching movements, mood anxious. [] Current Patient Data: Labs: Laboratory Tests Test 06/27/19 16:27 POC Urine HCG, Qualitative hcg negative (Negative) EKG: EKG: Sinus rhythm, rate 98, normal axis, no ST elevations or depressions. [] Radiology/Procedures: Radiology/Procedures: [] Impressions: Exam: Chest one view INDICATION: Chest pain TECHNIQUE: Frontal view of the chest Comparisons: 03/23/2019 FINDINGS: The cardiomediastinal silhouette and pulmonary vessels are within normal limits. The lung and pleural spaces are clear. IMPRESSION: No acute cardiopulmonary process. Electronically signed by: Niall Gaxiola MD (06/27/2019 4:55 PM) [id number] DICTATED AND SIGNED BY: NIALL GAXIOLA MD DATE: 06/27/19 [id number] CC: BRAVO PINEDA DO; RAMU MORRISSEY MD ~ Course & Med Decision Making: Course & Med Decision Making Pertinent Labs and Imaging studies reviewed. (See chart for details) The patient's EKG is unremarkable. Her chest x-ray is unremarkable. Prior to the rest of her work-up being complete, the patient decided to leave AGAINST MEDICAL ADVICE. She was advised of the risks of this decision but she still chose to leave. [] Sarahy Disclaimer: Sarahy Disclaimer: This electronic medical record was generated, in whole or in part, using a voice recognition dictation system. Departure Departure: Impression: Primary Impression: Chest pain Additional Impression: Methamphetamine use Disposition: 07 AGAINST MEDICAL ADVICE Condition: GUARDED Referrals: RAMU MORRISSEY MD (PCP) BRAVO PINEDA DO Jun 27, 2019 16:37
--- NOTE | 2019-06-27 16:41 | EKG ---
[address] [address] Test Date: 2019-06-27 Test Time: 16:29:16 Pat Name: JONO CHASE Department: Room: Gender: F [employer]: : 1990 Requested By: BRAVO PINEDA Order Number: [id number] Reading MD: Dyllan Ramírez MD Measurements Intervals [place] Rate: 98 P: 0 VA: 136 QRS: 79 QRSD: 80 T: 49 QT: 340 QTc: 436 Interpretive Statements SINUS RHYTHM Electronically Signed On 06-29-2019 9:43:37 CDT by Dyllan Ramírez MD
--- NOTE | 2019-06-27 16:57 | RAD ---
Exam: Chest one view INDICATION: Chest pain TECHNIQUE: Frontal view of the chest Comparisons: 03/23/2019 FINDINGS: The cardiomediastinal silhouette and pulmonary vessels are within normal limits. The lung and pleural spaces are clear. IMPRESSION: No acute cardiopulmonary process. Electronically signed by: Niall Kruse MD (06/27/2019 4:55 PM) [id number]
[2019-06-27 16:58] LABS: BASO # 0.1 x10^3/uL (0.0-0.2); BASO % 1 % (0-3); EOS # 0.5 x10^3/uL (0.0-0.7); EOS % 5 % (0-3); HEMATOCRIT 42.2 % (36.0-47.0); HEMOGLOBIN 14.4 g/dL (12.0-15.5); LYMPH # 3.2 x10^3/uL (1.0-4.8); LYMPH % 36 % (24-48); MEAN CORPUSCULAR HEMOGLOBIN 32 pg (25-35); MEAN CORPUSCULAR HGB CONC 34 g/dL (31-37); MEAN CORPUSCULAR VOLUME 93 fL (79-100); MONO # 0.9 x10^3/uL (0.0-1.1); MONO % 10 % (0-9); NEUT # 4.4 x10^3uL (1.8-7.7); NEUT % 49 % (31-73); PLATELET COUNT 377 x10^3/uL (140-400); RED BLOOD COUNT 4.52 x10^6/uL (3.50-5.40); WHITE BLOOD COUNT 9.1 x10^3/uL (4.0-11.0)
[2019-06-27 17:03] LABS: BACTERIA,URINE FEW /HPF (0-FEW); BILIRUBIN,URINE NEG (NEG); CLARITY,URINE HAZY; COLOR,URINE YELLOW; GLUCOSE,URINE NEG (NEG); NITRITE,URINE NEG (NEG); SQUAMOUS EPITHELIAL CELL,UR MANY /LPF; UROBILINOGEN,URINE 0.2 mg/dL (0.2 mg/dL)
[2019-06-27 17:04] LABS: CALCIUM 9.3 mg/dL (8.5-10.1); CREATININE 0.6 mg/dL (0.6-1.0); GFR 119.9
[2019-06-27 17:06] LABS: BARBITURATES NEG (NEG); BENZODIAZEPINES NEG (NEG); CANNABINOIDS NEG (NEG); COCAINE NEG (NEG); METHADONE NEG (NEG); OPIATES NEG (NEG); PHENCYCLIDINE NEG (NEG)
[2019-06-27 17:07] LABS: AMPHETAMINE/METHAMPHETAMINE POS (NEG)
[2019-06-27 17:10] LABS: ALBUMIN/GLOBULIN RATIO 1.1 (1.0-1.7); TOTAL BILIRUBIN 0.4 mg/dL (0.2-1.0); TOTAL PROTEIN 7.7 g/dL (6.4-8.2)
== END 2019-06-27 17:00 | disposition left against medical advice (07) ==
LOC: ER 16:03
DX: R07.89 Other chest pain (principal); F15.10 Other stimulant abuse, uncomplicated; F41.9 Anxiety disorder, unspecified; F31.9 Bipolar disorder, unspecified; K21.9 Gastro-esophageal reflux disease without esophagitis; F10.20 Alcohol dependence, uncomplicated; F17.210 Nicotine dependence, cigarettes, uncomplicated; Z88.1 Allergy status to other antibiotic agents; Z88.0 Allergy status to penicillin; Y90.0 Blood alcohol level of less than 20 mg/100 ml
CPT/HCPCS: 36415; 71045; 80053; 80307; 81001; 81025; 84484; 85025; 87086; 93005; 99285